=== PATIENT | female | born 1975 | race Caucasian/White ===

== ENCOUNTER → 2020-11-13 02:42 | Outpatient (CLI) | payer BC, SELFPAY ==
[2020-11-13 18:15] LABS: SARS-CoV-2 RNA PCR Negative
== END ==
PROVIDERS: PCP Family Medicine; Visit Provider Internal Medicine Gastroenterology
DX: Z01.812 Encounter for preprocedural laboratory examination (principal); Z20.822 Contact with and (suspected) exposure to COVID-19
CPT/HCPCS: C9803; U0003; U0005

== ENCOUNTER 2020-11-16 01:32 | Day surgery (SDC) | payer BC, SELFPAY ==
[2020-11-12 08:17] VITALS: BMI 43.8
[2020-11-16] MEDS: LACTATED RINGERS 1,000 ML 150 ML IV CONT (11:31)
[2020-11-16 11:33] VITALS: BP 143/96; PULSE 82; RESP 18; TEMP 36.2; O2SAT 99; BMI 44.2
--- NOTE | 2020-11-16 11:40 | WPDANESEPPF ---
Anes - Initial Pre Proc Eval Procedure: Operation Date: 11/16/20 12:15 Proposed Procedures p Colonoscopy - Richard Ulrich MD Date/Time: 11/16/20 11:40 Surgeon: Richard Ulrich MD Pre Op Diagnosis: melena Patient Data Age: 45 Gender: F Height: 1.7 m Weight: 128.1 kg Last Vital Signs Temp 36.2 C L 11/16/20 11:33 Pulse 82 11/16/20 11:33 Resp 18 11/16/20 11:33 BP 143/96 H 11/16/20 11:33 Pulse Ox 99 11/16/20 11:33 Allergies Allergy/AdvReac Type Severity Reaction Status Date / Time No Known Allergies Allergy Verified 11/16/20 11:32 Home Medications Medication Instructions Recorded Confirmed Type ashjohnydha root extract 300 mg PO DAILY 11/12/20 11/12/20 History multivit with min-folic acid 1 tablet PO DAILY 11/12/20 11/12/20 History [Adult One Daily Multivitamin] Patient hx anesthesia problems: none Family hx anesthesia problems: none PMFSH Past Medical History Medical History (Updated 11/16/20 @ 11:41 by Eladio Malone MD) Anxiety Depression HLD (hyperlipidemia) Hx of colonic polyp Family History Family History (Updated 08/31/20 @ 17:17 by Ena Hernandez [facility]) Grandparent Carcinoma of colon Mother Hypertension Father Diabetes mellitus Acute myocardial infarction Kidney failure Grandparent Acute myocardial infarction Grandparent Lung cancer Sibling Diabetes mellitus Depression Sibling Depression Social History Social History (Updated 08/31/20 @ 17:13 by Ena Hernandez CMA) Smoking packs per day: 1 Smoking cigarettes per day: 20.0 Years smoked: 20 Smoking pack-years: 20.00 Smoking status: Current every day smoker Tobacco type: e-cigarettes/vaping Additional smoking assessment comments: currently uses e-cigarettes Alcohol intake: current Alcohol use details: ONCE PER MONTH Substance use: current Substance use type: marijuana Other substance usage details: DAILY Living arrangements: with family Spiritual care concerns: No Anes - Eval Final PreProcedure Day of Procedure 11/16/20 11:40 Patient weight: obese Heart: regular rate and rhythm Lungs: clear to auscultation and normal air movement Airway: Mallampati scale class II Neurological: alert and oriented Last oral intake: >/= 8 hours ASA classification: III Emergent: no Anesthetic plan: proceed Anesthesia type and monitoring: general GIVS Informed Consent: The patient's anesthetic plan and its attendant risks and benefits were discussed with the patient/family/POA. Questions were solicited and answers provided to the satisfaction of the patient/family/POA.
--- NOTE | 2020-11-16 12:09 | PM.HPGS ---
History of Present Illness History of Present Illness Consent: Risks, benefits, and alternatives have been discussed and questions answered. Patient agrees to proceed with procedure. Chief complaint: melena Narrative: Dora Lopez is a 45 year old female with intermittent blood in stool, had a colonoscopy about 20 years ago. Review of Systems Constitutional: Constitutional: Denies headache(s) and Denies weakness Eyes: Eyes: Denies blurry vision ENT: Reports Normal hearing present, Denies headache(s) and Denies neck pain Cardiovascular: Cardiovascular: Denies chest pain and Denies dyspnea Respiratory: Respiratory: Denies dyspnea Gastrointestinal: Gastrointestinal: Reports no additional gastrointestinal complaints Genitourinary: Genitourinary: Denies dysuria Musculoskeletal: Musculoskeletal: Denies neck pain Integumentary/Breasts: Skin/Breast: Denies dry skin Neurologic: Reports Normal hearing present, Denies headache(s) and Denies weakness Psychiatric: Psychiatric: Denies anxiety Endocrine: Endocrine: Denies change in body appearance Hematologic/Lymphatic: Hematologic/Lymphatic: Denies easy bleeding Allergic/Immunologic: Allergic/Immunologic: Denies urticaria PMFSH Past Medical History Medical History (Updated 11/16/20 @ 12:10 by Richard Ulrich MD) Anxiety Blood in stool Depression HLD (hyperlipidemia) Hx of colonic polyp Family History Family History (Updated 08/31/20 @ 17:17 by Ena Hernandez [facility]) Grandparent Carcinoma of colon Mother Hypertension Father Diabetes mellitus Acute myocardial infarction Kidney failure Grandparent Acute myocardial infarction Grandparent Lung cancer Sibling Diabetes mellitus Depression Sibling Depression Social History Social History (Updated 08/31/20 @ 17:13 by Ena Hernandez CMA) Smoking packs per day: 1 Smoking cigarettes per day: 20.0 Years smoked: 20 Smoking pack-years: 20.00 Smoking status: Current every day smoker Tobacco type: e-cigarettes/vaping Additional smoking assessment comments: currently uses e-cigarettes Alcohol intake: current Alcohol use details: ONCE PER MONTH Substance use: current Substance use type: marijuana Other substance usage details: DAILY Living arrangements: with family Spiritual care concerns: No Meds Home Medications and Allergies Home Medications Medication Instructions Recorded Confirmed Type ashwagandha root extract 300 mg PO DAILY 11/12/20 11/12/20 History multivit with min-folic acid 1 tablet PO DAILY 11/12/20 11/12/20 History [Adult One Daily Multivitamin] Allergies Allergy/AdvReac Type Severity Reaction Status Date / Time No Known Allergies Allergy Verified 11/16/20 11:32 Vital Signs Vital Signs - 24 hr 11/16/20 11:33 Temperature 97.2 F L Pulse Rate 82 Respiratory Rate 18 Blood Pressure 143/96 H Pulse Oximetry 99 Exam Const: General: comfortable and no acute distress HENMT: General nose exam: Normal nares present Eyes: General: appearance normal, both eyes and all related structures Neck: Neck: no JVD Resp: Auscultation: clear to auscultation bilaterally Cardio: Rate: regular rate Rhythm: regular rhythm GI: Inspection: non-distended GI Palp: Yes Soft to palpation Skin: General skin exam: normal color Neuro: General: gait normal Speech: normal speech Extrem: General: normal to inspection Psych: Mental Status: mental status grossly normal Assessment and Plan Assessment and plan (1) Blood in stool: Code(s): K92.1 - Melena Status: Acute Assessment and Plan: colonoscopy
[2020-11-16 12:26] VITALS: BP 104/69; PULSE 62; RESP 20; O2SAT 100
[2020-11-16 12:36] VITALS: BP 129/97; PULSE 65; RESP 20; O2SAT 100
[2020-11-16 12:46] VITALS: BP 132/83; PULSE 63; RESP 20; O2SAT 100
== END 2020-11-16 12:58 | disposition home or self-care (01) ==
PROVIDERS: PCP Family Medicine; Visit Provider Internal Medicine Gastroenterology
PROC: 0DJD8ZZ Inspection of Lower Intestinal Tract, Via Natural or Artificial Opening Endoscopic (ICD-10-PCS; CPT 45378; principal; 2020-11-16 12:15)
DX: K92.1 Melena (principal); D12.4 Benign neoplasm of descending colon; K64.4 Residual hemorrhoidal skin tags; K64.8 Other hemorrhoids; E78.5 Hyperlipidemia, unspecified; F41.8 Other specified anxiety disorders; F17.290 Nicotine dependence, other tobacco product, uncomplicated; E66.9 Obesity, unspecified; Z68.41 Body mass index [BMI] 40.0-44.9, adult
CPT/HCPCS: 45385; 88305; J2704; J7120